=== PATIENT | female | born 1965 | race Caucasian/White ===

== ENCOUNTER → 2018-08-26 | Outpatient (CLI) | payer MEDICARE, OTHER | END | disposition home or self-care (01) | LOC: Rad HDHVI 13:00 | PROVIDERS: ATTEND Internal Medicine Cardiovascular Disease | DX: I08.8 Other rheumatic multiple valve diseases (principal); I27.20 Pulmonary hypertension, unspecified; R00.2 Palpitations | CPT/HCPCS: 93306 ==

== ENCOUNTER → 2018-09-13 | Outpatient (CLI) | payer MEDICARE, OTHER ==
[~2018-09-13] VITALS: Ht 167.6 cm; Wt 75.7 kg
[~2018-09-13] MED LIST: ADENOSINE 64 MG in GIVE UN-DILUTED 0 ML IV ONE; ADENOSINE 90 MG/30 ML INJ IV ONE
== END | disposition home or self-care (01) ==
LOC: Rad HDHVI 13:21
PROVIDERS: ATTEND Internal Medicine Cardiovascular Disease
DX: Z13.89 Encounter for screening for other disorder (principal); J44.9 Chronic obstructive pulmonary disease, unspecified; R09.02 Hypoxemia; R00.2 Palpitations; L10.9 Pemphigus, unspecified; I48.0 Paroxysmal atrial fibrillation
CPT/HCPCS: 78452; 93005; 96374; 96375; A9500; J0153

== ENCOUNTER → 2018-11-01 | Outpatient (CLI) | payer MEDICARE, OTHER ==
[~2018-11-01] MED LIST changes: -ADENOSINE 64 MG in GIVE UN-DILUTED 0 ML IV ONE; -ADENOSINE 90 MG/30 ML INJ IV ONE; +CAND32TA PO; +CYCL1TAB18 PO; +DAPS100T PO; +FENO160T8 PO; +GABA300C10 PO; +HYDR-531 PO; +LORA-654 PO; +MAGN400T5 PO; +METO25TA5 PO; +OME20T PO; +PRE5T PO; +SPIR25TA8 PO; +VENL150C58 PO; +ZOLP10TA PO
[2018-11-01 09:26] VITALS: BP 121/56
--- NOTE | 2018-11-01 09:26 | NUR ---
[facility] PT ARRIVED AT THE [facility] FOR PREOP LABS, CXR AND EKG, A/O X 3 0 DISTRESS VSS
[2018-11-01 09:49] VITALS: BP 117/117
--- NOTE | 2018-11-01 09:49 | NUR ---
Pre-Op Discharge Summary: See e-MAR for any medications given for this visit. Pre-op orders received and carried out per MD of EKG, LABS and chest xrays. Patient given a copy of EKG with instructions to go to [facility] out patient for further follow up care.
[2018-11-01 12:36] LABS: Basophils # (auto) 0 uL; Basophils % (auto) 0.4 % (0.0-2.0); Eosinophils # (auto) 0.3 uL; Eosinophils % (auto) 5.5 % (0.0-7.0); Hematocrit 35.1 % (36.0-46.0); Hemoglobin 11.4 g/dL (12.2-16.2); Lymphocytes # (auto) 1.8 uL; Lymphocytes % (auto) 38.7 % (10.0-50.0); Mean Corpuscular Hemoglobin 31.2 pg (28.0-32.0); Mean Corpuscular Hgb Conc. 32.4 g/dL (32.0-36.0); Mean Corpuscular Volume 96.2 fL (80.0-100.0); Monocytes # (auto) 0.4 uL; Monocytes % (auto) 8.4 % (0.0-12.0); Neutrophils # (auto) 2.2 uL; Nucleated Red Blood Cells % 0.1 %; Platelet Count (auto) 143 10^3/uL (140-450); Red Blood Cells 3.65 10^6/uL (4.0-5.20); White Blood Cell 4.7 10^3/uL (4.4-10.8)
[2018-11-01 12:49] LABS: INR 0.99 (0.9-1.15); Partial Thromboplastin Time 24.5 sec (23.64-32.05)
[2018-11-01 13:13] LABS: Potassium 3.9 mmol/L (3.5-5.1)
[2018-11-01 13:27] LABS: BUN/Creatinine Ratio 23.9; Calcium 9.2 mg/dL (8.5-10.1)
== END | disposition home or self-care (01) ==
LOC: Rad HDHVI 09:16
PROVIDERS: ATTEND Internal Medicine Cardiovascular Disease
DX: Z01.812 Encounter for preprocedural laboratory examination (principal); D64.9 Anemia, unspecified; R79.1 Abnormal coagulation profile; I10 Essential (primary) hypertension
CPT/HCPCS: 36415; 80048; 85025; 85610; 85730; 93005; G0463

== ENCOUNTER 2018-11-02 12:36 | Day surgery (SDC) | payer MEDICARE, OTHER ==
[~2018-11-02] VITALS: Ht 167.6 cm; Wt 75.7 kg
[2018-11-02] MEDS ORDERED: LIDOCAINE 2%HCL (LOCAL ANESTH.) INJ 20ML MDV ONE (13:17)
[2018-11-02] MEDS ORDERED: IOHEXOL 350 MG/ML 100ML IJ ONE ×2 (13:17→14:26)
[2018-11-02] MEDS ORDERED: IODIXANOL 320MG/ML 100ML BTL IV ONE (14:14)
[2018-11-02] MEDS ORDERED: ANGIOMAX 250 MG VIAL IV ONE (14:25)
[2018-11-02] MEDS ORDERED: SODIUM CHL 0.9% 0 ML ONE (14:26)
[2018-11-02] MEDS ORDERED: MIDAZOLAM HCL 1MG/1ML-2 ML VIAL ONE (14:26)
[2018-11-02] MEDS ORDERED: fentaNYL CITRATE 100 MCG/2 ML VL ONE (14:26)
== END 2018-11-02 17:00 | disposition home or self-care (01) ==
LOC: CATH 12:36
PROVIDERS: ATTEND Internal Medicine Cardiovascular Disease
DX: R06.02 Shortness of breath (principal); R07.9 Chest pain, unspecified; I10 Essential (primary) hypertension; I27.20 Pulmonary hypertension, unspecified; E78.5 Hyperlipidemia, unspecified; E78.00 Pure hypercholesterolemia, unspecified; F12.90 Cannabis use, unspecified, uncomplicated; F41.9 Anxiety disorder, unspecified; Z87.891 Personal history of nicotine dependence; Z79.899 Other long term (current) drug therapy; Z88.0 Allergy status to penicillin; Z88.8 Allergy status to other drugs, medicaments and biological substances; Z91.018 Allergy to other foods; Z85.3 Personal history of malignant neoplasm of breast; Z82.49 Family history of ischemic heart disease and other diseases of the circulatory system; Z82.3 Family history of stroke
CPT/HCPCS: 93005; 93460; C1760; C1894; J1644; J2250; J3010; J7030; Q9967; 99152

== ENCOUNTER → 2019-01-28 | Outpatient (CLI) | payer MEDICARE, OTHER ==
[~2019-01-28] MED LIST changes: +CAND1TAB PO; -CAND32TA PO; -LORA-654 PO; +LORA0.5T12 PO
[2019-01-28 12:01] LABS: Albumin 3.9 g/dL (3.4-5.0)
[2019-01-28 12:05] LABS: Bilirubin, Direct 0.2 mg/dL (0-0.2); Bilirubin, Total 0.7 mg/dL (0.2-1.0); Total Protein 6.9 g/dL (6.4-8.2)
== END | disposition home or self-care (01) ==
LOC: LAB 10:19
PROVIDERS: ATTEND Internal Medicine Cardiovascular Disease
DX: E78.5 Hyperlipidemia, unspecified (principal); E11.9 Type 2 diabetes mellitus without complications
CPT/HCPCS: 36415; 80061; 80076; 83036

== ENCOUNTER → 2020-07-30 | Outpatient (CLI) | payer MEDICARE, OTHER ==
[~2020-07-30] VITALS: Ht 167.6 cm; Wt 74.4 kg
[~2020-07-30] MED LIST changes: +CYCL10TA6 PO; -CYCL1TAB18 PO; -LORA0.5T12 PO; +LORA0.5T20 PO; +MAGN400T40 PO; -MAGN400T5 PO
== END | disposition home or self-care (01) ==
LOC: Rad HDHVI 13:39
PROVIDERS: ATTEND Internal Medicine Cardiovascular Disease
DX: I25.10 Atherosclerotic heart disease of native coronary artery without angina pectoris (principal); J44.9 Chronic obstructive pulmonary disease, unspecified; J96.90 Respiratory failure, unspecified, unspecified whether with hypoxia or hypercapnia; R00.2 Palpitations; E78.5 Hyperlipidemia, unspecified
CPT/HCPCS: 78452; 93017; 96374; A9500

== ENCOUNTER → 2020-11-26 | Outpatient (CLI) | payer MEDICARE, OTHER | END | disposition home or self-care (01) | LOC: LAB 12:35 | PROVIDERS: ATTEND Internal Medicine Cardiovascular Disease | DX: R94.4 Abnormal results of kidney function studies (principal) | CPT/HCPCS: 36415; 82565 ==

== ENCOUNTER → 2020-11-28 | Outpatient (CLI) | payer MEDICARE, OTHER ==
[~2020-11-28] MED LIST changes: +IOHEXOL 350 MG/ML 100ML IJ ONE; +READI-CAT 2 (BARIUM SULF)(VANILLA SMOOTHIE) 450ML ONE
[2020-11-28 09:15] VITALS: BP 114/81
[2020-11-28 10:27] VITALS: BP 132/74
== END | disposition home or self-care (01) ==
LOC: Rad HDHVI 09:03
PROVIDERS: ATTEND Internal Medicine Cardiovascular Disease
DX: K76.0 Fatty (change of) liver, not elsewhere classified (principal); K57.30 Diverticulosis of large intestine without perforation or abscess without bleeding; I70.0 Atherosclerosis of aorta; K46.9 Unspecified abdominal hernia without obstruction or gangrene; K86.89 Other specified diseases of pancreas; R16.0 Hepatomegaly, not elsewhere classified; R10.9 Unspecified abdominal pain
CPT/HCPCS: 74177; G0463; Q9967

== ENCOUNTER → 2021-05-23 | Outpatient (CLI) | payer MEDICARE, OTHER ==
[~2021-05-23] MED LIST changes: +CYCL-839 PO; -CYCL10TA6 PO; -IOHEXOL 350 MG/ML 100ML IJ ONE; -READI-CAT 2 (BARIUM SULF)(VANILLA SMOOTHIE) 450ML ONE
== END | disposition home or self-care (01) ==
LOC: Rad HDHVI 13:01
PROVIDERS: ATTEND Internal Medicine Cardiovascular Disease
DX: I07.1 Rheumatic tricuspid insufficiency (principal); R00.2 Palpitations; E78.5 Hyperlipidemia, unspecified
CPT/HCPCS: 93306

== ENCOUNTER → 2021-11-06 | Outpatient (CLI) | payer MEDICARE, OTHER | END | disposition home or self-care (01) | LOC: Rad HDHVI 13:13 | PROVIDERS: ATTEND Internal Medicine Cardiovascular Disease | DX: I65.23 Occlusion and stenosis of bilateral carotid arteries (principal); I65.09 Occlusion and stenosis of unspecified vertebral artery; R07.89 Other chest pain; I25.10 Atherosclerotic heart disease of native coronary artery without angina pectoris | CPT/HCPCS: 93880 ==

== ENCOUNTER → 2021-11-19 | Outpatient (CLI) | payer MEDICARE, OTHER ==
[~2021-11-19] VITALS: Ht 165.1 cm; Wt 73.5 kg
== END | disposition home or self-care (01) ==
LOC: Rad HDHVI 08:20
PROVIDERS: ATTEND Internal Medicine Cardiovascular Disease
DX: R00.2 Palpitations (principal); I11.0 Hypertensive heart disease with heart failure; I50.33 Acute on chronic diastolic (congestive) heart failure; I25.10 Atherosclerotic heart disease of native coronary artery without angina pectoris; R06.02 Shortness of breath; J44.9 Chronic obstructive pulmonary disease, unspecified; E78.5 Hyperlipidemia, unspecified
CPT/HCPCS: 78452; 93017; 96374; A9500

== ENCOUNTER → 2022-04-21 | Outpatient (CLI) | payer MEDICARE, OTHER ==
[2022-04-21 12:22] LABS: Urine Blood Negative /uL (Negative); Urine Specific Gravity 1.031 (1.001-1.035)
[2022-04-21 12:24] LABS: Basophils # (auto) 0 10 ^3/uL (0-0.2); Basophils % (auto) 0.6 % (0.0-2.0); Eosinophils # (auto) 0.1 10 ^3/uL (0-0.8); Eosinophils % (auto) 1.9 % (0.0-7.0); Hematocrit 37.4 % (36.0-46.0); Lymphocytes # (auto) 1.8 10 ^3/uL (0.4-5.4); Lymphocytes % (auto) 25.5 % (10.0-50.0); Mean Corpuscular Hemoglobin 29.3 pg (28.0-32.0); Mean Corpuscular Volume 91.6 fL (80.0-100.0); Monocytes # (auto) 0.5 10 ^3/uL (0-1.3); Monocytes % (auto) 7.5 % (0.0-12.0); Neutrophils # (auto) 4.6 10 ^3/uL (1.6-8.6); Neutrophils % (auto) 64.5 % (37.0-80.0); Nucleated Red Blood Cells % 0.1 %; Red Blood Cells 4.08 10^6/uL (4.0-5.20); Red Cell Distribution Width 14.9 % (11.8-14.3)
[2022-04-21 12:25] LABS: Albumin 4.2 g/dL (3.4-5.0); Calcium 9.8 mg/dL (8.5-10.1)
[2022-04-21 12:31] LABS: BUN/Creatinine Ratio 23.5; Total Protein 6.9 g/dL (6.4-8.2)
[2022-04-21 12:51] LABS: Free T4 (Free Thyroxine) 1.16 ng/dL (0.89-1.76)
== END | disposition home or self-care (01) ==
LOC: LAB 10:43
PROVIDERS: ATTEND Internal Medicine Cardiovascular Disease
DX: E11.9 Type 2 diabetes mellitus without complications (principal); E78.5 Hyperlipidemia, unspecified; E55.9 Vitamin D deficiency, unspecified; D51.3 Other dietary vitamin B12 deficiency anemia; D64.9 Anemia, unspecified; I10 Essential (primary) hypertension; R00.2 Palpitations; R53.1 Weakness; R30.0 Dysuria
CPT/HCPCS: 36415; 80053; 80061; 81003; 82306; 82607; 83036; 84439; 84443; 85025

== ENCOUNTER → 2022-04-22 | Outpatient (CLI) | payer MEDICARE, OTHER ==
[~2022-04-22] MED LIST changes: +READI-CAT 2 (BARIUM SULF)(VANILLA SMOOTHIE) 450ML ONE
== END | disposition home or self-care (01) ==
LOC: Rad HDHVI 11:42
PROVIDERS: ATTEND Internal Medicine Cardiovascular Disease
DX: K40.20 Bilateral inguinal hernia, without obstruction or gangrene, not specified as recurrent (principal); K57.32 Diverticulitis of large intestine without perforation or abscess without bleeding; K76.0 Fatty (change of) liver, not elsewhere classified; K44.9 Diaphragmatic hernia without obstruction or gangrene; L90.5 Scar conditions and fibrosis of skin; I70.0 Atherosclerosis of aorta; M47.815 Spondylosis without myelopathy or radiculopathy, thoracolumbar region; Z90.710 Acquired absence of both cervix and uterus
CPT/HCPCS: 74176

== ENCOUNTER → 2023-04-13 | Outpatient (CLI) | payer MEDICARE, OTHER ==
[~2023-04-13] MED LIST changes: +FENO160T PO; -FENO160T8 PO; +GABA-1250 PO; -GABA300C10 PO; +LORA-1121 PO; -LORA0.5T20 PO; -READI-CAT 2 (BARIUM SULF)(VANILLA SMOOTHIE) 450ML ONE
== END | disposition home or self-care (01) ==
LOC: Rad HDHVI 13:25
PROVIDERS: ATTEND Internal Medicine Cardiovascular Disease
DX: R60.9 Edema, unspecified (principal)
CPT/HCPCS: 93925; 93970

== ENCOUNTER 2024-02-05 15:10 | Emergency (ER) | payer OTHER ==
[~2024-02-05] VITALS: Ht 167.6 cm; Wt 66.7 kg
[~2024-02-05 15:10] MED LIST changes: -DAPS100T PO; +[UNRECOGNIZED DRUG - CODE] PO
[2024-02-05 15:38] VITALS: BP 140/81; PULSE 83; RESP 15; O2SAT 86
== END 2024-02-05 16:57 | disposition left against medical advice (07) ==
LOC: ER 15:10
DX: S05.11XA Contusion of eyeball and orbital tissues, right eye, initial encounter (principal); Z53.21 Procedure and treatment not carried out due to patient leaving prior to being seen by health care provider; W22.8XXA Striking against or struck by other objects, initial encounter; Y93.89 Activity, other specified; Y92.89 Other specified places as the place of occurrence of the external cause; Y99.8 Other external cause status

== ENCOUNTER 2024-04-08 04:24 | Emergency (ER) | payer OTHER ==
[2024-04-08 04:47] VITALS: BP 158/69; PULSE 106; RESP 14; O2SAT 94
--- NOTE | 2024-04-08 04:51 | PRN ---
Misceleneous Note Note Note 58-year-old female who presents to the emergency department with back pain and lower extremity swelling. She was discharged from [facility] for severe anemia requiring blood transfusion 2 days ago. She denies any injury. Rapid medical screening examination performed. Patient awake, alert in no acute distress. Labs, pain control ordered. We will sign out to oncoming provider pending full evaluation. MAIN MEZA MD Apr 08, 2024 04:51
[2024-04-08] MEDS: HYDROcodone-ACET 5/325MG TAB PO ONE (05:40)
--- NOTE | 2024-04-08 12:47 | ECG ---
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
== END 2024-04-08 05:47 | disposition left against medical advice (07) ==
LOC: ER 04:24 → EDBD 04:24 → ER 05:47
DX: R07.81 Pleurodynia (principal); M54.6 Pain in thoracic spine; R10.9 Unspecified abdominal pain; Z53.21 Procedure and treatment not carried out due to patient leaving prior to being seen by health care provider
CPT/HCPCS: 93005